=== PATIENT | female | born 1965 | race Caucasian/White ===

== ENCOUNTER → 2017-01-17 | Outpatient (CLI) | payer BC ==
[~2017-01-17] MED LIST: ASPI-496 PO; ATOR20TA9 PO; CETI10TA18 PO; CHOL40002 PO; CLIN150C14 PO; FLUT16SP NAS; METF500T4 PO; MIDO5TAB PO; OMEG100023 PO; PROP10TA PO; UBID100C24 PO
== END | disposition home or self-care (01) ==
LOC: CFH 10:47
PROVIDERS: ATTEND Internal Medicine Cardiovascular Disease
DX: Q21.1 Atrial septal defect (principal)
CPT/HCPCS: 93306

== ENCOUNTER → 2018-05-25 | Outpatient (CLI) | payer BC ==
[~2018-05-25] MED LIST changes: +ATOR20TA37 PO; -ATOR20TA9 PO; +METF500T17 PO; -METF500T4 PO; -MIDO5TAB PO; +MIDO5TAB9 PO
== END | disposition home or self-care (01) ==
LOC: CVU 14:53
PROVIDERS: ATTEND Internal Medicine Cardiovascular Disease
DX: I07.1 Rheumatic tricuspid insufficiency (principal); I37.1 Nonrheumatic pulmonary valve insufficiency; I27.0 Primary pulmonary hypertension
CPT/HCPCS: 0399T; 93306

== ENCOUNTER 2020-03-18 10:11 | Day surgery (SDC) | payer BC ==
[~2020-03-18] VITALS: Ht 162.6 cm; Wt 70.5 kg
[~2020-03-18 10:11] MED LIST changes: -FLUT16SP NAS; +FLUT16SP24 NAS; -PROP10TA PO; +PROP10TA16 PO
[2020-03-18] MEDS ORDERED: DIPHENHYDRAMINE 50 MG/ML, 1ML IVPush ONE (10:30)
[2020-03-18] MEDS ORDERED: SPIR25TA5 PO (11:13)
[2020-03-18] MEDS ORDERED: TADA20TA47 PO (11:13)
[2020-03-18] MEDS ORDERED: AMBR10TA3 PO (11:13)
[2020-03-18 11:14] VITALS: BP 109/77
[2020-03-18] MEDS ORDERED: DIPHENHYDRAMINE 50 MG/ML, 1ML ONE (11:20)
[2020-03-18] MEDS ORDERED: MIDAZOLAM 1 MG/ML, 2ML ONE (12:32)
[2020-03-18] MEDS ORDERED: FENTANYL PF 100 MCG/2ML ONE (12:33)
== END 2020-03-18 14:38 | disposition home or self-care (01) ==
LOC: CACL 10:11
PROVIDERS: ATTEND Internal Medicine Cardiovascular Disease
DX: I27.20 Pulmonary hypertension, unspecified (principal); Q21.1 Atrial septal defect; I10 Essential (primary) hypertension; E11.9 Type 2 diabetes mellitus without complications; G47.36 Sleep related hypoventilation in conditions classified elsewhere; Z79.82 Long term (current) use of aspirin; Z79.84 Long term (current) use of oral hypoglycemic drugs; Z79.899 Other long term (current) drug therapy; Z88.0 Allergy status to penicillin; Z99.81 Dependence on supplemental oxygen
CPT/HCPCS: 93451; 99156; C1725; C1894; J1200; J2250; J3010

== ENCOUNTER → 2020-12-31 | Outpatient (CLI) | payer BC ==
[~2020-12-31] MED LIST changes: +AMBR10TA3 PO; -CLIN150C14 PO; +CLIN150C15 PO; +SPIR25TA5 PO; +TADA20TA47 PO
== END | disposition home or self-care (01) ==
LOC: CFH 10:08
PROVIDERS: ATTEND Internal Medicine Cardiovascular Disease
DX: I36.1 Nonrheumatic tricuspid (valve) insufficiency (principal); Q24.9 Congenital malformation of heart, unspecified; E11.9 Type 2 diabetes mellitus without complications; I11.9 Hypertensive heart disease without heart failure
CPT/HCPCS: 93306; 93356